=== PATIENT | male | born 1980 | race Caucasian/White ===

== ENCOUNTER 2022-10-02 05:49 | Observation (INO) ==
[2022-10-02 06:06] VITALS: BMI 32.5
--- NOTE | 2022-10-02 06:34 | DR.CP ---
HPI <YONISROSACATIE RYAN - Last Filed: 10/03/22 03:37> Time Seen Time Seen by Provider: 10/02/22 06:20 HPI Comment HPI Comment: PATIENT IS 42YR OLD MALE IN ER WITH INCREASING SOB AND CHEST PAIN THAT IS INTTERMITTENT. WORSE TODAY. COUGHING, NONPRODUCTIVE WITHOUT FEVER. CHEST PAIN IS GENERALIZED CURRENTLY. Complaint Chief Complaint Doctor Comments: SOB AND CHEST PAIN. Reviewed Nurses Notes Review: Yes Mode of Arrival Mode of Arrival: Ambulatory Timing Onset of Chief Complaint: 10/01/22 PMH <YONISROSACATIE RYAN - Last Filed: 10/03/22 03:37> PMH Past Medical History: No Past Surgical History: No Family History History of Family Medical Conditions: No Social History Does patient currently use any type of tobacco product: Yes Have you used tobacco products in the last 12 months: No Type of Tobacco Use: Cigarettes Does any household member use tobacco: No Alcohol Use: Occasionally Do you use any recreational Drugs:: No Lives With: Family Lives Where: Home Infectious screening In the last 2 months have you had wt loss of >10#?: NO Have you had fever, night sweats or hemotysis?: No Have you traveled outside the country in the last 6 months?: No Isolation: Standard ROS <STACYGENNA RYAN - Last Filed: 10/03/22 03:37> Review of Systems Constitutional: Weakness and Fatigue; negative Fever Eyes: No Symptoms Reported ENTM: No Symptoms Reported, Nose Discharge and Nose Congestion Respiratoy: No Symptoms Reported and Short of Breath; negative Wheezing Cardiovascular: Chest Pain; negative Edema Gastrointestinal/Abdominal: No Symptoms Reported; negative Abdominal Pain, Diarrhea or Vomiting Genitourinary: No Symptoms Reported; negative Dysuria Neurological: Weakness; negative Headache or Dizziness Musculoskeletal: No Symptoms Reported; negative Muscle Pain Integumentary: No Symptoms Reported and Change in Color Hematologic/Lymphatic: No Symptoms Reported; negative Easy Bruising Endocrine: No Symptoms Reported and See HPI; negative Increased Thirst or Increased Urine Psychiatric: No Symptoms Reported All Other Systems: Reviewed and Negative PE <SRIDHARCATIE RYAN - Last Filed: 10/03/22 03:37> Vitals Vitals: Temperature 99.0 F Pulse Rate [Left Radial] 78 Pulse Rate 89 Respiratory Rate 20 Blood Pressure [Left Arm] 123/85 Blood Pressure 127/80 O2 Sat by Pulse Oximetry 93 General Limitations: No Limitations General Appearance: Alert and In Distress Head Head Exam: Normal Inspection and Atraumatic Eyes Eye exam: Normal Appearance ENT ENT Exam: Normal Exam, Normal Oropharynx, Normal External Ear Exam and TM's Normal Bilaterally Chest Chest Inspection: Normal Inspection and Symmetric Chest Wall Rise; negative Tenderness Respiratory Respiratory Exam: Normal Lung Sounds Bilat; negative Accessory Muscle Use, Chest Wall Tenderness or Respiratory Distress Cardiovascular Cardiovascular Exam: Regular Rate, Normal Rhythm and Normal Heart Sounds; negative Systolic Murmur or Diastolic Murmur Abdominal Exam Abdominal Exam: Normal Inspection, Normal Bowel Sounds and Soft; negative Tenderness Extremities Extremities Exam: Normal Inspection and Normal Capillary Refill; negative Tenderness Back Back Exam: Normal Inspection; negative (R) CVA Tenderness or (L) CVA Tenderness Neurologic Neurological Exam: Alert and Oriented X3; negative Motor Sensory Deficit Psychiatric Psychiatric Exam: Normal Affect and Normal Mood Skin Skin Exam: Intact <Usman Shine - Last Filed: 10/02/22 10:32> Vitals Vitals: Temperature 99.0 F Pulse Rate [Left Radial] 78 Pulse Rate 89 Respiratory Rate 20 Blood Pressure [Left Arm] 123/85 Blood Pressure 127/80 O2 Sat by Pulse Oximetry 93 MDM <EDWARD POPE - Last Filed: 10/03/22 03:37> Differential Diagnosis Differential Diagnosis: Angina, Chest Wall Pain, CHF, Costochondritis, Myocardial Infarction, Pericarditis, Pleuritis, Pneumonia, Pneumothorax and Pulmonary Embolus COURSE <EDWARD POPE - Last Filed: 10/03/22 03:37> Treatment Treatment: SEE ORDERS DONE WHILE PATIENT WAS IIN ER. PATIENT SIGN OUT TO DR. SHINE. Education/Counseling Education/Counseling: Patient Educated On: Diagnosis and Needs for Follow Up <Usman Shine - Last Filed: 10/02/22 10:32> Treatment Treatment: SEE ORDERS DONE WHILE PATIENT WAS IIN ER. PATIENT SIGN OUT TO DR. SHINE. 1029 - W/u reviewed with pt. CXR with increased left sided markings, D- dimer slightly elevated. CTA chest without PE. + moderate L pleural effusion, with underlying markings c/w atelectasis. Will treat for possible underlying pneumonia. Presented pt to covering hospitalist, Dr Murray. Will admit for observation, possible drainage of pleural effusion (diagnostic and therapeutic). Needs f/u to r/o underlying neoplastic process. ROR <EDWARD RYAN - Last Filed: 10/03/22 03:37> Labs Reviewed Laboratory Results Reviewed?: Yes Result Diagrams: 10/02/22 06:45 10/02/22 06:45 Laboratory: WBC 12.4 X10^3/uL (3.6-10.0) H 10/02/22 06:45 RBC 5.31 X10^6/uL (4.7-6.0) 10/02/22 06:45 Hgb 15.9 g/dL (13.5-18.0) 10/02/22 06:45 Hct 46.9 % (42.0-54.0) 10/02/22 06:45 MCV 88.3 fL (80.0-100.0) 10/02/22 06:45 MCH 29.9 pg (27.0-34.0) 10/02/22 06:45 MCHC 33.9 g/dL (33.0-35.0) 10/02/22 06:45 RDW 13.2 % (11.6-16.5) 10/02/22 06:45 Plt Count 349 X10^3/uL (150.0-450.0) 10/02/22 06:45 MPV 6.9 fL (7.4-11.0) L 10/02/22 06:45 Neut % (Auto) 77.5 % (42.0-75.0) H 10/02/22 06:45 Lymph % (Auto) 12.6 % (21.0-51.0) L 10/02/22 06:45 [place] % (Auto) 9.4 % (0.0-13.0) 10/02/22 06:45 Eos % (Auto) 0.2 % (0.9-2.9) L 10/02/22 06:45 Baso % (Auto) 0.3 % (0.2-1.0) 10/02/22 06:45 Neut # (Auto) 9.6 x10^3/uL (2.2-4.8) H 10/02/22 06:45 Lymph # (Auto) 1.6 X10^3/uL (1.3-2.9) 10/02/22 06:45 [place] # (Auto) 1.2 x10^3/uL (0.3-0.8) H 10/02/22 06:45 Eos # (Auto) 0.0 x10^3/uL (0.0-0.2) 10/02/22 06:45 Baso # (Auto) 0.0 X10^3/uL (0.0-0.1) 10/02/22 06:45 Absolute Nucleated RBC 0.0 /100WBC 10/02/22 06:45 D-Dimer 1.09 ug/ml (0.0-0.57) H 10/02/22 06:45 Sample Site Rrad 10/02/22 06:40 ABG pH 7.480 (7.35-7.45) H 10/02/22 06:40 ABG pCO2 35.0 mmHg (35.0-45.0) 10/02/22 06:40 ABG pO2 75.0 mmHg (80.0-100.0) L 10/02/22 06:40 ABG HCO3 26.1 mmol/L (22-26) H 10/02/22 06:40 ABG O2 Saturation 96.0 % (90-100) 10/02/22 06:40 ABG Base Excess 2.8 mmol/L (-2.0-2.0) H 10/02/22 06:40 Ryan Test Pos 10/02/22 06:40 A-a Gradient 31.0 mmHg 10/02/22 06:40 FiO2 21.0 10/02/22 06:40 Blood Gas Comments Leda abg well-mtf 10/02/22 06:40 Sodium 136 mmol/L (136-145) 10/02/22 06:45 Corrected Sodium TNP 10/02/22 06:45 Potassium 4.3 mmol/L (3.5-5.1) 10/02/22 06:45 Chloride 99 mmol/L (98-107) 10/02/22 06:45 Carbon Dioxide 29.2 mmol/L (21-32) 10/02/22 06:45 BUN 11 mg/dL (7-18) 10/02/22 06:45 Creatinine 1.15 mg/dL (0.70-1.30) 10/02/22 06:45 Est GFR (MDRD) Af Amer > 60 (>60) 10/02/22 06:45 Est GFR (MDRD) Non-Af > 60 (>60) 10/02/22 06:45 Glucose 94 mg/dL (65-99) 10/02/22 06:45 Calcium 8.6 mg/dL (8.5-10.1) 10/02/22 06:45 Corrected Calcium TNP 10/02/22 06:45 Total Bilirubin 0.60 mg/dL (0.2-1.0) 10/02/22 06:45 AST 16 Units/L (15-37) 10/02/22 06:45 ALT 27 Units/L (12-78) 10/02/22 06:45 Alkaline Phosphatase 74 Units/L (46-116) 10/02/22 06:45 Creatine Kinase 48 Units/L (39-308) 10/02/22 06:45 Troponin I High Sens 2.9 ng/L (4.0-60.0) L 10/02/22 06:45 B-Natriuretic Peptide 8.8 pg/mL (0-79) 10/02/22 06:45 Total Protein 7.4 g/dL (6.4-8.2) 10/02/22 06:45 Albumin 3.4 g/dL (3.4-5.0) 10/02/22 06:45 Globulin 4.0 g/dL (2.5-4.5) 10/02/22 06:45 Albumin/Globulin Ratio 0.9 Ratio (1.1-2.1) L 10/02/22 06:45 Specimen Type Clean catch urine 10/02/22 07:10 Urine Color Dark yellow (YELLOW) 10/02/22 07:10 Urine Appearance Clear (CLEAR) 10/02/22 07:10 Urine pH 6.0 (5.0 - 8.0) 10/02/22 07:10 Ur Specific [place] 1.020 (1.000-1.030) 10/02/22 07:10 Urine Protein 1+ (NEGATIVE) 10/02/22 07:10 Urine Glucose (UA) Negative (NEGATIVE) 10/02/22 07:10 Urine Ketones Negative (NEGATIVE) 10/02/22 07:10 Urine Blood Negative (NEGATIVE) 10/02/22 07:10 Urine Nitrite Negative (NEGATIVE) 10/02/22 07:10 Urine Bilirubin Negative (NEGATIVE) 10/02/22 07:10 Urine Urobilinogen 1+ (NORMAL) 10/02/22 07:10 Ur Leukocyte Esterase 1+ (NEGATIVE) 10/02/22 07:10 Urine RBC 0-2 /HPF (0-3) 10/02/22 07:10 Urine WBC 3-5 /HPF (0-5) 10/02/22 07:10 Ur Squamous Epith Cells Negative /HPF (NEGATIVE) 10/02/22 07:10 Amorphous Sediment Trace /HPF (NEGATIVE) 10/02/22 07:10 Urine Bacteria Negative /HPF (NEGATIVE) 10/02/22 07:10 Urine Mucus Many /HPF (NEGATIVE) 10/02/22 07:10 Ur Culture Indicated? No/not indicated 10/02/22 07:10 Urine Opiates Screen Positive (NEG=<300) 10/02/22 07:10 Urine Methadone Screen Negative (NEG=<300) 10/02/22 07:10 Ur Barbiturates Screen Negative (NEG=<200) 10/02/22 07:10 Ur Phencyclidine Scrn Negative (NEG=<25) 10/02/22 07:10 Ur Amphetamines Screen Negative (NEG=<1000) 10/02/22 07:10 U Benzodiazepines Scrn Negative (NEG=<200) 10/02/22 07:10 Urine Cocaine Screen Negative (NEG=<300) 10/02/22 07:10 U Marijuana (THC) Screen Negative (NEG=<50) 10/02/22 07:10 SARS-CoV-2 (PCR) Negative (NEGATIVE) 10/02/22 06:20 Influenza Type A (PCR) Negative (NEGATIVE) 10/02/22 06:20 Influenza Type B (PCR) Negative (NEGATIVE) 10/02/22 06:20 RSV (PCR) Negative (NEGATIVE) 10/02/22 06:20 XRAY XRAY Interpreted by: Radiologist (REPORTS NOTED.) and Self EKG Rate: 85 [place]: Normal Rhythm: NSR Block: None Hypertrophy: None ST: Normal <Usman Shine - Last Filed: 10/02/22 10:32> Labs Reviewed Laboratory: WBC 12.4 X10^3/uL (3.6-10.0) H 10/02/22 06:45 RBC 5.31 X10^6/uL (4.7-6.0) 10/02/22 06:45 Hgb 15.9 g/dL (13.5-18.0) 10/02/22 06:45 Hct 46.9 % (42.0-54.0) 10/02/22 06:45 MCV 88.3 fL (80.0-100.0) 10/02/22 06:45 MCH 29.9 pg (27.0-34.0) 10/02/22 06:45 MCHC 33.9 g/dL (33.0-35.0) 10/02/22 06:45 RDW 13.2 % (11.6-16.5) 10/02/22 06:45 Plt Count 349 X10^3/uL (150.0-450.0) 10/02/22 06:45 MPV 6.9 fL (7.4-11.0) L 10/02/22 06:45 Neut % (Auto) 77.5 % (42.0-75.0) H 10/02/22 06:45 Lymph % (Auto) 12.6 % (21.0-51.0) L 10/02/22 06:45 [place] % (Auto) 9.4 % (0.0-13.0) 10/02/22 06:45 Eos % (Auto) 0.2 % (0.9-2.9) L 10/02/22 06:45 Baso % (Auto) 0.3 % (0.2-1.0) 10/02/22 06:45 Neut # (Auto) 9.6 x10^3/uL (2.2-4.8) H 10/02/22 06:45 Lymph # (Auto) 1.6 X10^3/uL (1.3-2.9) 10/02/22 06:45 [place] # (Auto) 1.2 x10^3/uL (0.3-0.8) H 10/02/22 06:45 Eos # (Auto) 0.0 x10^3/uL (0.0-0.2) 10/02/22 06:45 Baso # (Auto) 0.0 X10^3/uL (0.0-0.1) 10/02/22 06:45 Absolute Nucleated RBC 0.0 /100WBC 10/02/22 06:45 D-Dimer 1.09 ug/ml (0.0-0.57) H 10/02/22 06:45 Sample Site Rrad 10/02/22 06:40 ABG pH 7.480 (7.35-7.45) H 10/02/22 06:40 ABG pCO2 35.0 mmHg (35.0-45.0) 10/02/22 06:40 ABG pO2 75.0 mmHg (80.0-100.0) L 10/02/22 06:40 ABG HCO3 26.1 mmol/L (22-26) H 10/02/22 06:40 ABG O2 Saturation 96.0 % (90-100) 10/02/22 06:40 ABG Base Excess 2.8 mmol/L (-2.0-2.0) H 10/02/22 06:40 Ryan Test Pos 10/02/22 06:40 A-a Gradient 31.0 mmHg 10/02/22 06:40 FiO2 21.0 10/02/22 06:40 Blood Gas Comments Leda abg well-mtf 10/02/22 06:40 Sodium 136 mmol/L (136-145) 10/02/22 06:45 Corrected Sodium TNP 10/02/22 06:45 Potassium 4.3 mmol/L (3.5-5.1) 10/02/22 06:45 Chloride 99 mmol/L (98-107) 10/02/22 06:45 Carbon Dioxide 29.2 mmol/L (21-32) 10/02/22 06:45 BUN 11 mg/dL (7-18) 10/02/22 06:45 Creatinine 1.15 mg/dL (0.70-1.30) 10/02/22 06:45 Est GFR (MDRD) Af Amer > 60 (>60) 10/02/22 06:45 Est GFR (MDRD) Non-Af > 60 (>60) 10/02/22 06:45 Glucose 94 mg/dL (65-99) 10/02/22 06:45 Calcium 8.6 mg/dL (8.5-10.1) 10/02/22 06:45 Corrected Calcium TNP 10/02/22 06:45 Total Bilirubin 0.60 mg/dL (0.2-1.0) 10/02/22 06:45 AST 16 Units/L (15-37) 10/02/22 06:45 ALT 27 Units/L (12-78) 10/02/22 06:45 Alkaline Phosphatase 74 Units/L (46-116) 10/02/22 06:45 Creatine Kinase 48 Units/L (39-308) 10/02/22 06:45 Troponin I High Sens 2.9 ng/L (4.0-60.0) L 10/02/22 06:45 B-Natriuretic Peptide 8.8 pg/mL (0-79) 10/02/22 06:45 Total Protein 7.4 g/dL (6.4-8.2) 10/02/22 06:45 Albumin 3.4 g/dL (3.4-5.0) 10/02/22 06:45 Globulin 4.0 g/dL (2.5-4.5) 10/02/22 06:45 Albumin/Globulin Ratio 0.9 Ratio (1.1-2.1) L 10/02/22 06:45 Specimen Type Clean catch urine 10/02/22 07:10 Urine Color Dark yellow (YELLOW) 10/02/22 07:10 Urine Appearance Clear (CLEAR) 10/02/22 07:10 Urine pH 6.0 (5.0 - 8.0) 10/02/22 07:10 Ur Specific [place] 1.020 (1.000-1.030) 10/02/22 07:10 Urine Protein 1+ (NEGATIVE) 10/02/22 07:10 Urine Glucose (UA) Negative (NEGATIVE) 10/02/22 07:10 Urine Ketones Negative (NEGATIVE) 10/02/22 07:10 Urine Blood Negative (NEGATIVE) 10/02/22 07:10 Urine Nitrite Negative (NEGATIVE) 10/02/22 07:10 Urine Bilirubin Negative (NEGATIVE) 10/02/22 07:10 Urine Urobilinogen 1+ (NORMAL) 10/02/22 07:10 Ur Leukocyte Esterase 1+ (NEGATIVE) 10/02/22 07:10 Urine RBC 0-2 /HPF (0-3) 10/02/22 07:10 Urine WBC 3-5 /HPF (0-5) 10/02/22 07:10 Ur Squamous Epith Cells Negative /HPF (NEGATIVE) 01/10/23 07:10 Amorphous Sediment Trace /HPF (NEGATIVE) 10/02/22 07:10 Urine Bacteria Negative /HPF (NEGATIVE) 10/02/22 07:10 Urine Mucus Many /HPF (NEGATIVE) 10/02/22 07:10 Ur Culture Indicated? No/not indicated 10/02/22 07:10 Urine Opiates Screen Positive (NEG=<300) 10/02/22 07:10 Urine Methadone Screen Negative (NEG=<300) 10/02/22 07:10 Ur Barbiturates Screen Negative (NEG=<200) 10/02/22 07:10 Ur Phencyclidine Scrn Negative (NEG=<25) 10/02/22 07:10 Ur Amphetamines Screen Negative (NEG=<1000) 10/02/22 07:10 U Benzodiazepines Scrn Negative (NEG=<200) 10/02/22 07:10 Urine Cocaine Screen Negative (NEG=<300) 10/02/22 07:10 U Marijuana (THC) Screen Negative (NEG=<50) 10/02/22 07:10 SARS-CoV-2 (PCR) Negative (NEGATIVE) 10/02/22 06:20 Influenza Type A (PCR) Negative (NEGATIVE) 10/02/22 06:20 Influenza Type B (PCR) Negative (NEGATIVE) 10/02/22 06:20 RSV (PCR) Negative (NEGATIVE) 10/02/22 06:20 Opioid <EDWARD POPE - Last Filed: 10/03/22 03:37> Opioid Risk Tool Age (Eduardo box if 16-45): Yes History of Preadolescent Sexual Abuse: No Total: 1 Total Score Risk Category: Low Risk Copyright: Norman FRANCO predicting aberrant behaviors <Usman Shine - Last Filed: 10/02/22 10:32> Opioid Risk Tool Total: 1 Total Score Risk Category: Low Risk Discharge Plan Diagnosis Discharge Problem: Pneumonia, Pleural effusion, SOB (shortness of breath) Discharge Plan Patient Disposition: ADMITTED INPATIENT Condition: Stable Discharge Comment: RETURN TO ER IF WORSE.
--- NOTE | 2022-10-02 06:34 | EKG ---
Test Reason : CHEST PAIN Blood Pressure : */* mmHG Vent. Rate : 85 BPM Atrial Rate : 85 BPM P-R Int : 146 ms QRS Dur : 80 ms QT Int : 360 ms P-R-T Axes : 35 23 41 degrees QTc Int : 428 ms Normal sinus rhythm Normal ECG No previous ECGs available Confirmed by Fredo Nino ([id number]) on 10/02/2022 8:16:49 AM Referred By: Confirmed By: Fredo Nino
[2022-10-02 06:43] LABS: ABG ALLEN TEST POS; ABG BASE EXCESS 2.8 mmol/L (-2.0-2.0); ABG HCO3 26.1 mmol/L (22-26)
[2022-10-02 06:53] LABS: BASOPHILS % (AUTO) 0.3 % (0.2-1.0); EOSINOPHILS % (AUTO) 0.2 % (0.9-2.9); HEMATOCRIT 46.9 % (42.0-54.0); HEMOGLOBIN 15.9 g/dL (13.5-18.0); LYMPHOCYTES # (AUTO) 1.6 X10^3/uL (1.3-2.9); LYMPHOCYTES % (AUTO) 12.6 % (21.0-51.0); MEAN CORPUSCULAR HEMOGLOBIN 29.9 pg (27.0-34.0); MEAN CORPUSCULAR HGB CONC 33.9 g/dL (33.0-35.0); MEAN CORPUSCULAR VOLUME 88.3 fL (80.0-100.0); MEAN PLATELET VOLUME 6.9 fL (7.4-11.0); MONOCYTES # (AUTO) 1.2 x10^3/uL (0.3-0.8); MONOCYTES % (AUTO) 9.4 % (0.0-13.0); NEUTROPHILS # (AUTO) 9.6 x10^3/uL (2.2-4.8); NEUTROPHILS % (AUTO) 77.5 % (42.0-75.0); RED BLOOD COUNT 5.31 X10^6/uL (4.7-6.0); RED CELL DISTRIBUTION WIDTH 13.2 % (11.6-16.5); WHITE BLOOD COUNT 12.4 X10^3/uL (3.6-10.0)
--- NOTE | 2022-10-02 07:03 | RAD ---
HISTORYCP, SOBSTUDYCHEST, 1 VIEWCOMPARISONNoneTECHNIQUEPA or AP view of the chestFINDINGSCardiac and mediastinal contours are within normal limits. There is hazy lung opacity in left mid to lower lung. Blunted left costophrenic sulcus. Right lung appears clear. Overall low lung volumes bilaterally. No pneumothorax. External wires are noted.IMPRESSIONHazy left mid to lower lung opacity may represent atelectasis or infiltrate. Blunted left costophrenic sulcus can be seen with small pleural effusion or pleuro-parynchemal scarring.Electronically signed by: Jez Wang (Oct 02, 2022 07:02:14)
[2022-10-02 07:10] LABS: ALANINE AMINOTRANSFERASE 27 Units/L (12-78); ALBUMIN 3.4 g/dL (3.4-5.0); ALKALINE PHOSPHATASE 74 Units/L (46-116); ASPARTATE AMINO TRANSFERASE 16 Units/L (15-37); BLOOD UREA NITROGEN 11 mg/dL (7-18); CALCIUM 8.6 mg/dL (8.5-10.1); CARBON DIOXIDE 29.2 mmol/L (21-32); CHLORIDE 99 mmol/L (98-107); CREATININE 1.15 mg/dL (0.70-1.30); SODIUM 136 mmol/L (136-145); TOTAL PROTEIN 7.4 g/dL (6.4-8.2); eGFR NON BLACK RACES > 60 (>60)
[2022-10-02 07:46] LABS: BILIRUBIN,URINE NEGATIVE (NEGATIVE); BLOOD/HEMOGLOBIN,URINE NEGATIVE (NEGATIVE); GLUCOSE, URINE NEGATIVE (NEGATIVE); KETONES,URINE NEGATIVE (NEGATIVE); LEUKOCYTE ESTERASE ,URINE 1+ (NEGATIVE); NITRITES,URINE NEGATIVE (NEGATIVE); PROTEIN,URINE 1+ (NEGATIVE); UROBILINOGEN,URINE 1+ (NORMAL)
[2022-10-02 07:51] LABS: APPEARANCE,URINE CLEAR (CLEAR); COLOR,URINE DARK YELLOW (YELLOW); RBC,URINE 0-2 /HPF (0-3)
[2022-10-02 07:52] LABS: BACTERIA,URINE NEGATIVE /HPF (NEGATIVE); SQUAMOUS EPITHELIAL CELL,UR NEGATIVE /HPF (NEGATIVE)
[2022-10-02] MEDS ORDERED: ROCEPHIN VIAL 1 GRAM IV ONE (09:15)
[2022-10-02] MEDS ORDERED: NS 100 ML IV 100 ML ONE (09:20)
[2022-10-02] MEDS ORDERED: ROCEPHIN VIAL 1 GRAM ONE (09:20)
--- NOTE | 2022-10-02 09:22 | CT ---
HISTORYCHEST PAIN, SOB, ELEVATED DDIMERSTUDYCTA CHESTCOMPARISONChest radiograph from same day.TECHNIQUECTA chest protocol with axial images from the thoracic inlet to upper abdomen with IV contrast. Sagittal and coronal reformats and MIP images were created. Automated exposure control was utilized.FINDINGSThe visualized thyroid gland appears benign. Ascending thoracic aorta measures the the approximately 3.5 x 3.4 cm image 64 series 3. Mildly atherosclerotic thoracic aorta. Pulmonary artery is normal in caliber centrally. No filling defect is identified to suggest pulmonary embolism. The heart is normal in size. No pericardial effusion. No pathologic adenopathy in the thorax. There is hepatic steatosis. Visualized upper abdomen otherwise appears benign. The trachea is patent. There is a web through the left mainstem bronchus image 63 series 7. There is a moderate left pleural effusion. There is scattered pulmonary opacities which mainly linear and likely due to atelectasis, worst in the left lower lobe such as image 82 series 7. No pneumothorax.IMPRESSIONNegative for PE.Moderate left pleural effusion. Scattered in subsegmental atelectasis worst in the left lower lobe.Hepatic steatosis.Thin web in the left mainstem bronchus.Electronically signed by: Jez Wang (Oct 02, 2022 09:20:16)
[2022-10-02] MEDS ORDERED: ZOFRAN INJ 4 MG VIAL IVP PRN (12:00)
[2022-10-02] MEDS ORDERED: MILK OF MAGNESIA PO PRN (12:04)
[2022-10-02] MEDS: ZITHROMAX INJ 500 MG VIAL 500 MG in NS 250 ML IV 250 ML IV SCH (13:03)
[2022-10-02] MEDS: ROBITUSSIN DM PO SCH ×3 (13:04→20:48)
[2022-10-02] MEDS: NS 1,000 ML IV 1,000 ML IV SCH (13:06)
[2022-10-02] MEDS: PULMICORT NEB TX 0.5 MG NEB SCH ×2 (13:24→20:00)
[2022-10-02] MEDS: DUONEB 0.5 MG/3 MG (3 mL) NEB SCH ×2 (16:24→20:00)
[2022-10-02] MEDS ORDERED: TYLENOL 325 MG TAB PO PRN (19:49)
[2022-10-02] MEDS ORDERED: COLACE CAP 100 MG PO SCH (21:00)
[2022-10-03] MEDS: DUONEB 0.5 MG/3 MG (3 mL) NEB SCH ×6 (05:10→20:10)
[2022-10-03] MEDS: NS 1,000 ML IV 1,000 ML IV SCH ×2 (05:31→14:24)
[2022-10-03 06:19] LABS: BASOPHILS % (AUTO) 0.3 % (0.2-1.0); EOSINOPHILS % (AUTO) 0.3 % (0.9-2.9); HEMATOCRIT 43.5 % (42.0-54.0); HEMOGLOBIN 14.6 g/dL (13.5-18.0); LYMPHOCYTES # (AUTO) 1.6 X10^3/uL (1.3-2.9); LYMPHOCYTES % (AUTO) 19.4 % (21.0-51.0); MEAN CORPUSCULAR HEMOGLOBIN 29.8 pg (27.0-34.0); MEAN CORPUSCULAR HGB CONC 33.5 g/dL (33.0-35.0); MEAN CORPUSCULAR VOLUME 88.8 fL (80.0-100.0); MEAN PLATELET VOLUME 7.2 fL (7.4-11.0); MONOCYTES # (AUTO) 0.7 x10^3/uL (0.3-0.8); MONOCYTES % (AUTO) 8.6 % (0.0-13.0); NEUTROPHILS % (AUTO) 71.4 % (42.0-75.0); RED CELL DISTRIBUTION WIDTH 13.2 % (11.6-16.5); WHITE BLOOD COUNT 8.4 X10^3/uL (3.6-10.0)
[2022-10-03 07:31] LABS: BLOOD UREA NITROGEN 11 mg/dL (7-18); CALCIUM 8.6 mg/dL (8.5-10.1); CARBON DIOXIDE 28.9 mmol/L (21-32); CHLORIDE 104 mmol/L (98-107); CREATININE 1.06 mg/dL (0.70-1.30); SODIUM 141 mmol/L (136-145); eGFR NON BLACK RACES > 60 (>60)
[2022-10-03] MEDS: ROBITUSSIN DM PO SCH ×4 (08:05→20:43)
[2022-10-03] MEDS: ZITHROMAX INJ 500 MG VIAL 500 MG in NS 250 ML IV 250 ML IV SCH (08:05)
[2022-10-03 08:19] LABS: ALANINE AMINOTRANSFERASE 33 Units/L (12-78); ALKALINE PHOSPHATASE 69 Units/L (46-116); ASPARTATE AMINO TRANSFERASE 24 Units/L (15-37); COR CA(FOR HYPOALB) 9.4 mg/dL (8.5-10.1); TOTAL PROTEIN 6.9 g/dL (6.4-8.2)
[2022-10-03] MEDS: PULMICORT NEB TX 0.5 MG NEB SCH ×2 (08:22→20:10)
[2022-10-03 09:18] LABS: ABG BASE EXCESS 0.6 mmol/L (-2.0-2.0); ABG HCO3 24.3 mmol/L (22-26)
--- NOTE | 2022-10-03 10:43 | RAD ---
CHEST, 1 VIEWHISTORY: PNEUMONIA, SOB, PLEURAL EFFUSIIONStudy: Single view of the chest.Comparison:10/02/2022Findings:The cardiomediastinal silhouette is normal. Worsening of left lung base opacity with probable layering effusion. Osseous structures demonstrate no acute abnormality.IMPRESSION:1. Probable worsening of layering left lung base effusion.Electronically signed by: THOMAS SHIN (Oct 03, 2022 10:42:39)
--- NOTE | 2022-10-03 18:25 | DR.H&P ---
H&P - History & Physical for Day of: H&P Date: 10/02/22 - Chief Complaint Chief Complaint: chest pain - History of Present Illness History of Present Illness: PATIENT IS 42YR OLD MALE IN ER WITH INCREASING SOB AND CHEST PAIN THAT IS INTTERMITTENT. WORSE TODAY. COUGHING, NONPRODUCTIVE WITHOUT FEVER. CHEST PAIN IS GENERALIZED CURRENTLY. - Past Medical History Past Medical History: Hypertension - Past Surgical History Surgical History: No History - Social History Does patient currently use any type of tobacco product: Yes Have you used tobacco products in the last 12 months: Yes Type of Tobacco Use: Cigarettes How many years tobacco product used: 30 Does any household member use tobacco: No Alcohol Use: None Drug Use: Other - Medications Home Medications: ibuprofen [From Motrin IB] Allergy (Verified 10/02/22 10:33) CONTINUE taking the following medications azithromycin 250 mg tablet 1 tab PO DAILY 10/02/22 [History] pantoprazole 40 mg tablet,delayed release 1 tab PO QDAY 10/02/22 [History] - Review of Systems Constitutional: Weakness Eyes: No Symptoms Reported ENT: No Symptoms Reported Respiratory: Cough, Shortness of Breath, Wheezing Cardiovascular: No Symptoms Reported Gastrointestinal: Nausea Genitourinary: No Symptoms Reported Musculoskeletal: No Symptoms Reported Skin: No Symptoms Reported Neurological: No Symptoms Reported - Physical Exam Vital Signs: Temperature 98.9 F Pulse Rate [Left Radial] 85 Pulse Rate 84 Respiratory Rate 18 Blood Pressure [Left Arm] 124/80 Blood Pressure 127/80 O2 Sat by Pulse Oximetry 92 Oriented: Normal Eyes: Normal Ear: Normal Nose: Normal Throat: Normal Respiratory: RLL Diminished, LML Diminished, LLL Diminished Cardiovascular: Normal : Normal Auscultation: Bowel Sounds: Normal Palpation: Normal Tenderness: Normal Skin: Decreased [place]urg[place] Musculoskeletal: Back:Lumbar Psychiatric: Anxiety Speech Pattern: Clear, Appropriate - Assessment/Plan (1) Pneumonia Status: Acute Plan: ADMIT, PNEUMONIA PROTOCOL, IV ATBX. RESP THERAPY, BLOOD AND SPUTUM CULTURES COLLECTED ON ADMISSION. CTA CHEST OBTAINED IN ER. ABG, ADMISSION LABS, VERIFY HOME MEDICATIONS (2) Pleural effusion Status: Acute (3) SOB (shortness of breath) Status: Acute - Allergies Allergies/Adverse Reactions: Allergies Allergy/AdvReac Type Severity Reaction Status Date / Time ibuprofen [From Motrin IB] Allergy Verified 10/02/22 10:33
[2022-10-03] MEDS ORDERED: K-DUR TAB 20 MEQ PO SCH (19:00)
[2022-10-03] MEDS ORDERED: LASIX IVP SCH (19:00)
[2022-10-03 19:01] LABS: CREATINE KINASE 35 Units/L (39-308)
[2022-10-03] MEDS: LOVENOX INJ 40 MG SYR SC SCH (20:41)
[2022-10-03] MEDS: ZOSYN VIAL 3.375 GRAMS 3.375 G in NS 100 ML IV 100 ML IV SCH ×2 (20:43→22:08)
[2022-10-04] MEDS: DUONEB 0.5 MG/3 MG (3 mL) NEB SCH ×4 (00:10→13:38)
[2022-10-04] MEDS: NS 1,000 ML IV 1,000 ML IV SCH (03:05)
[2022-10-04 05:14] LABS: ABG ALLEN TEST POS; ABG BASE EXCESS 3.5 mmol/L (-2.0-2.0); ABG HCO3 27.8 mmol/L (22-26)
[2022-10-04] MEDS: ZOSYN VIAL 3.375 GRAMS 3.375 G in NS 100 ML IV 100 ML IV SCH ×2 (05:45→13:17)
[2022-10-04 06:02] LABS: BASOPHILS # (AUTO) 0.1 X10^3/uL (0.0-0.1); BASOPHILS % (AUTO) 0.6 % (0.2-1.0); EOSINOPHILS % (AUTO) 0.3 % (0.9-2.9); HEMOGLOBIN 14.6 g/dL (13.5-18.0); LYMPHOCYTES # (AUTO) 2.2 X10^3/uL (1.3-2.9); LYMPHOCYTES % (AUTO) 23.2 % (21.0-51.0); MEAN CORPUSCULAR HEMOGLOBIN 29.7 pg (27.0-34.0); MEAN CORPUSCULAR HGB CONC 34.1 g/dL (33.0-35.0); MEAN CORPUSCULAR VOLUME 87.3 fL (80.0-100.0); MEAN PLATELET VOLUME 7.4 fL (7.4-11.0); MONOCYTES # (AUTO) 0.7 x10^3/uL (0.3-0.8); MONOCYTES % (AUTO) 7.8 % (0.0-13.0); NEUTROPHILS # (AUTO) 6.4 x10^3/uL (2.2-4.8); NEUTROPHILS % (AUTO) 68.1 % (42.0-75.0); RED BLOOD COUNT 4.92 X10^6/uL (4.7-6.0); RED CELL DISTRIBUTION WIDTH 12.7 % (11.6-16.5); WHITE BLOOD COUNT 9.4 X10^3/uL (3.6-10.0)
[2022-10-04 06:16] LABS: ALANINE AMINOTRANSFERASE 62 Units/L (12-78); ALBUMIN 3.2 g/dL (3.4-5.0); ALKALINE PHOSPHATASE 79 Units/L (46-116); ASPARTATE AMINO TRANSFERASE 40 Units/L (15-37); BLOOD UREA NITROGEN 11 mg/dL (7-18); CALCIUM 8.9 mg/dL (8.5-10.1); CARBON DIOXIDE 27.1 mmol/L (21-32); CHLORIDE 103 mmol/L (98-107); COR CA(FOR HYPOALB) 9.5 mg/dL (8.5-10.1); CREATININE 1.05 mg/dL (0.70-1.30); SODIUM 141 mmol/L (136-145); TOTAL PROTEIN 7.3 g/dL (6.4-8.2); eGFR NON BLACK RACES > 60 (>60)
--- NOTE | 2022-10-04 07:38 | RAD ---
HISTORYPNEUMONIA, PLEURAL EFFUSIONSTUDYCHEST, 1 [id number].TECHNIQUEPA or AP view of the chestFINDINGSCardiac and mediastinal contours are within normal limits. Similar appearing hazy opacity in most of the left lung. There is blunting of the bilateral costophrenic sulci. No pneumothorax.IMPRESSIONSimilar appearance to prior study. Suspect layering pleural effusion on the left and small pleural effusion on the right. Pneumonia not excluded.Electronically signed by: Jez Wang (Oct 04, 2022 07:37:35)
[2022-10-04] MEDS: LOVENOX INJ 40 MG SYR SC SCH (08:30)
[2022-10-04] MEDS: ZITHROMAX INJ 500 MG VIAL 500 MG in NS 250 ML IV 250 ML IV SCH (08:30)
[2022-10-04] MEDS: ROBITUSSIN DM PO SCH ×2 (08:30→13:16)
[2022-10-04] MEDS: PULMICORT NEB TX 0.5 MG NEB SCH (09:06)
[2022-10-04 12:01] VITALS: BP 113/73
== END 2022-10-04 15:10 | disposition left against medical advice (07) ==
LOC: MED/SURG 05:56 → ER 05:56 → MED/SURG 11:34
PROVIDERS: ADMIT Internal Medicine; ATTEND Internal Medicine
DX: I10 Essential (primary) hypertension; J90 Pleural effusion, not elsewhere classified; R06.02 Shortness of breath; Z20.822 Contact with and (suspected) exposure to COVID-19; R07.89 Other chest pain; J18.8 Other pneumonia, unspecified organism; Z53.29 Procedure and treatment not carried out because of patient's decision for other reasons